=== PATIENT | female | born 1960 | race Caucasian/White ===

== ENCOUNTER → 2018-01-05 | Outpatient (CLI) | payer OTHER ==
[~2018-01-05] MED LIST: AMITRIPTYLINE H75 MG PO; BUDESONIDE EC3 MG PO; BYSTOLIC10 MG PO; DICYCLOMINE HCL20 MG PO; ENTOCORT EC3 MG PO; ETODOLAC600 MG PO; FISH OIL 1,2001 EACH PO; FLORASTOR250 MG; LIALDA1.2 GM PO; LIBRAX CAPSULE1 EACH PO; LYRICA75 MG PO; MUCINEX DM ER1 EACH PO; MULTI-VITAMIN1 EACH PO; NORCO 10-325 T1 EACH PO; PLAQUENIL200 MG PO; PROBIOTIC & AC1 EACH PO; REMICADE100 MG/VIA; VITAMIN D32000 UNIT PO
--- NOTE | 2018-01-05 14:09 | Diagnostic Imaging Report ---
PROCEDURE:US LIVER COMPARISON:CT abdomen from 02/02/2015 INDICATIONS:Elevated Liver Enzymes TECHNIQUE: Huggins-scale and color doppler transverse and longitudinal images of the right upper quadrant of the abdomen were obtained. FINDINGS: Liver: 15.4 cm in right mid-clavicular line. Increased echogenicity. No masses. Main portal vein: 0.9 cm with normal, hepatopedal flow Gallbladder: No stones, wall thickening, or pericholecystic fluid Common Bile Duct: 0.4 cm Sonographic Bartlett's sign: Negative Right kidney: 10.1 cm. Normal echogenicity. No solid masses or hydronephrosis. Pancreas: Poorly visualized due to overlying bowel gas. Inferior vena cava: Poorly visualized due to overlying bowel gas. Aorta: Poorly visualized due to overlying bowel gas. Ascites: None in the right upper quadrant of the abdomen. CONCLUSION: Diffuse hepatic steatosis. Dictated by: Sanket Dasilva M.D. on 01/05/2018 at 14:11 Electronically approved by: Sanket Dasilva M.D. on 01/05/2018 at 14:11
== END ==
LOC: US 13:18
PROVIDERS: ATTEND Family Medicine
DX: R74.8 Abnormal levels of other serum enzymes (principal)
CPT/HCPCS: 76705

== ENCOUNTER → 2018-01-25 | Outpatient (CLI) | payer OTHER | LOC: MAMMO 09:50 | PROVIDERS: ATTEND Family Medicine | DX: Z12.31 Encounter for screening mammogram for malignant neoplasm of breast (principal) | CPT/HCPCS: 77067 ==

== ENCOUNTER → 2018-03-03 | Outpatient (CLI) | payer OTHER ==
--- NOTE | 2018-03-06 09:32 | Diagnostic Imaging Report ---
TECHNIQUE: Magnetic resonance imaging of the left KNEE was performed WITHOUT injected contrast. HISTORY: knee pain COMPARISON: None available. FINDINGS: LIGAMENTS AND TENDONS: ACL: Intact PCL: Intact Collateral ligaments: Intact Iliotibial band: Unremarkable Popliteal tendon: Intact Extensor mechanism: Intact JOINT: Menisci: Medial: Degenerative signal in the posterior horn without tear. Lateral: Intact Articular Cartilage: Medial Compartment: Diffuse partial thickness cartilage loss Lateral Compartment: Diffuse partial thickness cartilage loss Patellofemoral Compartment: Diffuse partial thickness cartilage loss with areas of high-grade erosion. Joint Fluid: Small joint effusion. BONE: Chondral rest within the medial femoral condyle. No surrounding edema. No acute fracture. SOFT TISSUES: Otherwise, unremarkable. IMPRESSION: Tricompartmental cartilage loss, patellofemoral compartment predominant. Medial meniscus degenerative signal without tear. Signed by: Dr. Darnell Piedra M.D. on 03/06/2018 9:28 AM
--- NOTE | 2018-03-06 09:36 | Diagnostic Imaging Report ---
TECHNIQUE: Magnetic resonance imaging of the right KNEE was performed WITHOUT injected contrast. HISTORY: knee pain COMPARISON: None available. FINDINGS: LIGAMENTS AND TENDONS: ACL: Intact PCL: Intact Collateral ligaments: Intact Iliotibial band: Unremarkable Popliteal tendon: Intact Extensor mechanism: Intact JOINT: Menisci: Medial: Degenerative signal in the posterior horn without tear. Lateral: Intact Articular Cartilage: Medial Compartment: Diffuse partial thickness cartilage loss with focal high-grade erosion of the nonweightbearing femoral condyle Lateral Compartment: Diffuse partial thickness cartilage loss Patellofemoral Compartment: Diffuse partial thickness cartilage loss with high-grade loss at the medial patellar facet. Joint Fluid: Small joint effusion. BONE: No acute fracture. SOFT TISSUES: Otherwise, unremarkable. IMPRESSION: Tricompartmental cartilage loss, patellofemoral compartment predominant. Medial meniscus degenerative signal without tear. Signed by: Dr. Darnell Piedra M.D. on 03/06/2018 9:33 AM
== END ==
LOC: MRI 15:53
PROVIDERS: ATTEND Anesthesiology Pain Medicine
DX: M25.562 Pain in left knee (principal); M25.561 Pain in right knee

== ENCOUNTER → 2018-09-04 | Outpatient (CLI) | payer OTHER ==
--- NOTE | 2018-09-04 12:16 | Diagnostic Imaging Report ---
History: Pain left side of the neck and left arm Comparison studies: None Technique: Sagittal T1, T2 and IR, axial T2 and axial gradient echo Intravenous contrast: None Findings: Alignment: Straightening of the lordosis. Minimal grade 1 anterolisthesis of C3 over C4. No scoliosis. Cervicomedullary junction: No abnormalities. Patent foramen magnum. Soft tissues: No T2 hyperintense inflammatory changes. Spinal cord: Normal in size and signal from the foramen magnum through T3 Vertebrae: Normal in height and signal intensity. No fractures or infection. Subcentimeter cyst at the right C3 lamina, likely degenerative. Degenerative changes: C2-C3: Mild facet hypertrophy with patent canal and foramina C3-C4: Disc degeneration with loss of T2 signal. Mild grade 1 anterolisthesis. Mild diffuse disc osteophyte complex, mild bilateral uncinate process and facet hypertrophy results in mild canal stenosis and mild bilateral foraminal narrowing. C4-C5: Mild left uncinate process and facet hypertrophy results in mild left foraminal narrowing without significant foraminal narrowing C5-C6: Disc degeneration with loss of T2 signal. Asymmetric left disc osteophyte complex, bilateral uncinate process hypertrophy results in mild canal stenosis, mild right and moderate left foraminal narrowing C6-C7: Disc degeneration with loss of T2 signal and decreased intervertebral space. Diffuse disc osteophyte complex, bilateral uncinate process mild canal stenosis and moderate bilateral foraminal narrowing C7-T1: Patent canal and foramina IMPRESSION: 1. Moderate degenerative foraminal narrowing at C5-6 on the left and C6-7 bilaterally. 2. Mild degenerative canal stenosis and mild multilevel foraminal narrowing as described above. Mild grade 1 anterolisthesis of C3 over C4. Signed by: DR Tee Kothari M.D. on 09/04/2018 12:12 PM
== END ==
LOC: MRI 07:23
PROVIDERS: ATTEND Anesthesiology Pain Medicine
DX: M54.12 Radiculopathy, cervical region (principal)
CPT/HCPCS: 72141